=== PATIENT | male | born 1955 | race Caucasian/White ===

== ENCOUNTER 2018-10-17 10:30 | Outpatient (RCR) | payer SELFPAY ==
--- NOTE | 2018-10-03 16:29 | HP.PTEVAL_ITS ---
Patient's Visit Information STEPHANIE JONES is a 62 year old M referred to Physical Therapy by Isaiah Galdamez MD with a diagnosis of RIGHT HIP PAIN. Date of Evaluation: 10/03/18 Physical Therapist: Kade Miranda PT, Cert MDT, OCS - Visit Plan Frequency: 1-2x /Week Duration: 4 Weeks Plan: postural ex's,lumbar ROM,DLS,HIP STRENGTHENING,modalties as needed - Subjective Findings: This 62 y/o male presents to physical therapy with right hip pain. Patient has had right buttuck many years.Patient seen chiroprctor has been using lift right side. Patient seen DR huff PT. Patient pain located right SI/LS. Aleve overcounter. Aggravated factors lifting,bending,walking,standing 1hour.Alleviating factors sitting is okay .Denies parathesia/tingling. Bowel/bladder. Coughing/sneezing. -. No trauma. Patient symptoms affect QOL Sunitha function /job demands.Patient has h/o lumbar p[ain. SOCIAL: . VOCATION: paint shop - Pain Right Buttocks Pain Intensity (Out of 10): 7 Pain Intensity Range: 10 - Objective POSTURE: mild foward posture,right pelivis higher. PALAPTION: GAIT: reciprocal pattern. NEURO: intact. AROM: flexion 110 degrees,ER 60,IR 60. MMT: quads/hams 4/5,hip flexion 4-/5,hip abd 3+/5 right ,left 4-/5. LUMBAR ROM: flexion min loss,extension min loss,side glides min loss,. FLEXABLITY: hams min loss,piriformis min loss - Special Tests L/S Slump test left side: Negative L/S Slump test right side: Negative L/S Left Straight Leg Raise: Negative L/S Right Straight Leg Raise: Negative Lumbar Standing: Flexion - Mechanical Response: No effect Lumbar Standing: Flexion - Symptoms During Testing: No effect Lumbar Standing: Flexion - Symptoms After Testing: No effect Lumbar Standing: Extension - Mechanical Response: No effect Lumbar Standing: Extension - Symptoms During Testing: No effect Lumbar Standing: Extension - Symptoms After Testing: No effect Lumbar Standing: Right Side Glides - Mechanical Response: No effect Lumbar Standing: Right Side [place] - Symptoms During Testing: No effect Lumbar Standing: Right Side [place] - Symptoms After Testing: No effect Lumbar Standing: Left Side [place] - Mechanical Response: No effect Lumbar Standing: Left Side [place] - Symptoms During Testing: No effect Lumbar Standing: Left Side [place] - Symptoms After Testing: No effect Lumbar Lying: Flexion - Mechanical Response: No effect Lumbar Lying: Flexion - Symptoms During Testing: No effect Lumbar Lying: Flexion - Symptoms After Testing: No effect Lumbar Lying: Extension - Mechanical Response: No effect Lumbar Lying: Extension - Symptoms During Testing: No effect Lumbar Lying: Extension - Symptoms After Testing: No effect R Hip Scour: Negative R Hip Quadrant - Intraarticular Pathology: Negative R Hip Trendelenberg - Glut Medius: Negative R Hip Harshad - IT Band: Negative - Goals Goal 1:: Independant with HEP Goal Time Frame: 2-4 Weeks Goal 2:: Patient to improve posture for ADL'S Goal Time Frame: 2-4 Weeks Goal 3:: Decrease pain in right L-S /sis region by 50% or greater to improve function Goal Time Frame: 2-4 Weeks Goal 4:: Patient to increase strength right glut medius by 4/5 to improve function. Goal Time Frame: 2-4 Weeks Goal 5:: Patient to impove LFES score by 5-10 points or greater to improve function. Goal Time Frame: 2-4 Weeks - Rehabilitation Potential Physical Therapy Diagnosis: This patient has right posterior glut pain possible derranagement with weakness of glut medius, [facility] Rehabilitation Potential: Good - Anticipated Interventions Patient/Client Instruction: Educate patient on: Condition, Plan of Care For the Purpose of:: To decrease pain, To increase ROM, To improve muscle perfo rmance and motor function, To improve ability to perform ADL's, To increase tolerance to activity/condition/position, To improve ability of physical actions for home/community/work/leisure, To improve health of tissue, To decrease soft tissue restriction, To increase flexibility/ROM, To reduce risk of recurrence, To improve ability to perform tasks related to life management Therapeutic Exercise to Include: Strength training, Body mechanics, Postural training, Flexibilty training, Dynamic Lumbar Stabilization, Nan Exercises For the Purpose of:: To decrease pain, To increase ROM, To improve muscle performance and motor function, To improve ability to perform ADL's, To increase tolerance to activity/condition/position, To improve ability of physical actions for home/community/work/leisure, To improve health of tissue, To decrease soft tissue restriction, To increase flexibility/ROM, To improve ability to perform tasks related to life management TENS: Yes IF ES: Yes Cryotherapy (ice pack, ice massage): Yes Thermo therapy (hot pack): Yes Ultrasound (thermal/non thermal): Yes For the Purpose of:: To decrease pain, To increase ROM, To improve nutrient delivery to tissue, To increase oxygenation perfusion, To improve health of tissue, To decrease soft tissue restriction Thank you for the opportunity to evaluate your patient. For Medicare and Medicare HMO plans, please review the plan of care and approve it. It will need to be FAXED BACK to us at [phone] for Medicare purposes. For Medicare only, by signing this I certify the plan of care. Please let me know if there are questions or concerns regarding this plan of care. Physician Signature: Date:
--- NOTE | 2019-02-07 11:29 | HP.PTDCSUM ---
HP - PT D/C Summary It has been my pleasure to treat STEPHANIE JONES under orders from Isaiah Galdamez MD, for the diagnosis of RIGHT HIP PAIN for a total of 2 visit(s). Discharge Date: Please see the following information for a summary of their discharge status. - Subjective Subjective: Doing okay ,pain is about pain - Pain Right Buttocks Pain Intensity (Out of 10): 2 - Overall Improvement % Improvement: 40 - Objective Objective/Function: DID WELL WITH EX'S WITH PROGRESSION OF DLS AND POSTURE..PAIN UNCHANGED - Goals Goal 1:: Independant with HEP Goal 2:: Patient to improve posture for ADL'S Goal 3:: Decrease pain in right L-S /sis region by 50% or greater to improve function Goal 4:: Patient to increase strength right glut medius by 4/5 to improve function. Goal 5:: Patient to impove LFES score by 5-10 points or greater to improve function. - Plan Plan: D/C TO HEP - D/C Information If there are questions or concerns regarding this patient's physical therapy, please feel free to call me at [phone]. Thank you for the referral of this patient. Sincerely, Kade Miranda, PT, Cert MDT, OCS
== END 2018-10-17 19:00 | disposition home or self-care (01) ==
LOC: PT 10:30
PROVIDERS: Family Provider Family Medicine; PCP Family Medicine; Referring Provider Family Medicine; Visit Provider Family Medicine
DX: M25.551 Pain in right hip (principal)
CPT/HCPCS: 97110; 97162

== ENCOUNTER → 2020-09-30 | Outpatient (CLI) | payer MEDICARE, OTHER, SELFPAY ==
--- NOTE | 2020-09-30 | LES_PTH ---
PATIENT: ALEJO JONES LOC: [facility] U#:[id number] AGE/SX: 64/M ROOM: RE09/30/[address]: Dr. Isaiah Galdamez MD : 1955 BED: DIS: 09/30/2020 SPEC #: [id number] RECD: 09/30/20 17:54 STATUS: MAINOR GASPARMicheal #: [id number] RADHA: 09/30/20 00:[address]: Isaiah Galdamez DEPT: SURGICAL PATHOLOGY RECD BY: Jefe Townsend Tissues: Oral cavity, NOS Procedures: Surgery Specimen Level IV HEADER OPERATION: Excision PRE-OP DIAGNOSIS: Oral lesion, possible SCC TISSUE SUBMITTED: Oral mucosa MICROSCOPIC DIAGNOSIS Oral lesion, biopsy: Consistent with fibroma. AM:diandra 10/02/2020 COMMENT Case has been reviewed in consultation with Dr. Van who concurs with the above diagnosis. IDC:SJ MICROSCOPIC DESCRIPTION Slides are reviewed. GROSS DESCRIPTION Received in fixative is one container labeled with the patient's name and designated mucosa right lip. The specimen consists of one irregular fragment of light luna soft tissue that measures 0.4 x 0.3 x 0.2 cm. The specimen is totally submitted in one cassette. The specimen is inked and submitted entirely in one cassette. / PRAKASH:diandra 10/01/20 TC:5 [facility]: [id number]
== END | disposition home or self-care (01) ==
LOC: LABSPEC 10-01 05:59
PROVIDERS: PCP Family Medicine; Referring Provider Family Medicine; Visit Provider Family Medicine
DX: K13.70 Unspecified lesions of oral mucosa (principal)
CPT/HCPCS: 88305

== ENCOUNTER → 2020-10-25 09:44 | Outpatient (CLI) | payer MEDICARE, SELFPAY ==
[2017-01-26 06:58] VITALS: BMI 29.1
[2020-10-25 12:25] LABS: Absolute Neutrophil Count 3.8 X10^3/uL (2.0-7.7); Basophil# 0.03 X10^3/uL; Basophil% 0.5 % (0-1); Eosinophil# 0.37 X10^3/uL; Eosinophils% 5.6 % (0-5); Hemoglobin 13.8 g/dL (13.0-16.5); Lymphocyte % 31.7 % (19-41); Mean Corp Hgb Conc 32.9 g/dL (32-36); Mean Corpuscular Hgb 29.4 pg (27.0-32.0); Mean Corpuscular Volume 89.6 fL (80-94); Mean Platelet Vol. 9.4 fl (6.2-12.0); Monocyte# 0.35 X10^3/uL; Monocyte% 5.3 % (0-10); NRBC Flagged by Analyzer 0 % (0-5); Neutrophil # 3.75 X10^3/uL (2.7-7.7); Neutrophil % 56.6 % (47-70); Platelet Count 257 K/mm3 (150-450); RBC Distribution Width CV 12.3 % (11.6-14.6); RBC Distribution Width SD 40.3 fl (35.1-43.9); Red Blood Count 4.69 M/mm3 (4.6-6.2); White Blood Count 6.6 K/mm3 (4.4-11.0)
[2020-10-25 12:50] LABS: Anion Gap 6 (5-15); BUN 16 mg/dL (7-18); BUN/Creat Ratio 17.3 RATIO (10-20); Calcium,Total 8.7 mg/dL (8.5-10.1); Chloride 107 mmol/L (98-107); Creatinine, Serum 0.92 mg/dL (0.70-1.30); EST Glomerular Filtration Rate 87 mL/min (>60); Est Glom Filt Rate - Afr Amer 105 mL/min (>60); Glucose 90 mg/dL (74-106); Potassium 4.2 mmol/L (3.5-5.1); Sodium Level 138 mmol/L (136-145)
[2020-10-25 17:57] LABS: Cholesterol 193 mg/dL (200); High Density Lipoprotein 59 mg/dL; PSA,Total - Annual Screen 1.07 ng/mL (0.00-4.00); Triglycerides 56 mg/dL; Very Low Density Lipoprotein 11 mg/dL (5-40)
== END ==
PROVIDERS: Nurse Practitioner Family; PCP Family Medicine; Visit Provider Family Medicine
DX: Z00.00 Encounter for general adult medical examination without abnormal findings (principal); G43.909 Migraine, unspecified, not intractable, without status migrainosus; Z12.5 Encounter for screening for malignant neoplasm of prostate
CPT/HCPCS: 36415; 80048; 80061; 84153; 85025; G0103

== ENCOUNTER → 2021-03-11 12:16 | Outpatient (CLI) | payer MEDICARE, OTHER, SELFPAY ==
--- NOTE | 2021-03-11 12:20 | RAD_ITS ---
STUDY: X-RAY CHEST REASON FOR EXAM: Male, 65 years old. COUGH TECHNIQUE: PA and lateral views of the chest. COMPARISON: Comparison is made with prior study dated 08/04/2011. FINDINGS: There are now is evidence of infiltrate in the posterior medial segment of the left lower lobe. Radiographic follow-up is recommended until clearing. There is no demonstrated pleural abnormality. Normal size heart. Normal mediastinum and diana. Normal visualized pulmonary arteries. There is atherosclerotic tortuosity of the aortic arch and descending thoracic aorta. There are diffuse degenerative changes of the visualized thoracic spine. Prior right rotator cuff surgery. There is no demonstrated abnormality of the visualized soft tissue structures of the upper abdomen. RAD/Chest PA and Lateral IMPRESSION: Infiltrate in the posterior medial segment of the left lower lobe as described. Radiographic follow-up until clearing is recommended. Electronically Signed: Nicanor Gray MD at 15:15 EST , Service support ,
[2021-03-11 15:08] LABS: Erythrocyte Sedimentation Rate 8 mm/hr (0-20)
[2021-03-11 15:10] LABS: Absolute Lymphocyte Count 2.04 X10^3/uL (0.83-4.51); Absolute Neutrophil Count 2.8 X10^3/uL (2.0-7.7); Basophil# 0.03 X10^3/uL; Basophil% 0.5 % (0-1); Eosinophil# 0.15 X10^3/uL; Eosinophils% 2.7 % (0-5); Hematocrit 44.9 % (40-54); Hemoglobin 14.9 g/dL (13.0-16.5); Lymphocyte # 2.04 X10^3/ul (0.83-4.51); Lymphocyte % 36.8 % (19-41); Mean Corp Hgb Conc 33.2 g/dL (32-36); Mean Corpuscular Hgb 29.4 pg (27.0-32.0); Mean Corpuscular Volume 88.6 fL (80-94); Mean Platelet Vol. 8.8 fl (6.2-12.0); NRBC Flagged by Analyzer 0 % (0-5); Neutrophil % 50.6 % (47-70); Platelet Count 302 K/mm3 (150-450); RBC Distribution Width CV 12.4 % (11.6-14.6); RBC Distribution Width SD 40.1 fl (35.1-43.9); Red Blood Count 5.07 M/mm3 (4.6-6.2); White Blood Count 5.5 K/mm3 (4.4-11.0)
[2021-03-11 16:02] LABS: AST(SGOT) 30 U/L (15-37); Alanine Aminotransfer ALT/SGPT 51 U/L (16-61); Alkaline Phosphatase 113 U/L (45-117); Anion Gap 5 (5-15); BUN 13 mg/dL (7-18); BUN/Creat Ratio 14.3 RATIO (10-20); CRP < 2.90 mg/L (0.0-3.0); Calcium,Total 9.1 mg/dL (8.5-10.1); Chloride 105 mmol/L (98-107); Creatinine, Serum 0.91 mg/dL (0.70-1.30); EST Glomerular Filtration Rate 89 mL/min (>60); Est Glom Filt Rate - Afr Amer 108 mL/min (>60); Glucose 89 mg/dL (74-106); Potassium 3.9 mmol/L (3.5-5.1); Rheumatoid Factor < 10.0 IU/mL (<15); Sodium Level 137 mmol/L (136-145)
[2021-03-14 09:31] LABS: ANTINUCLEAR ANTIBODIES DIRECT Negative (Negative)
[2021-03-15 03:08] LABS: QNTFERON TB Mitogen Value > 10.00 IU/mL (.); QNTFERON TB Nil Value 0.28 IU/mL (.); QNTFERON TB1+ Ag Value 0.28 IU/mL (.); QNTFERON TB2+ Ag Value 0.28 IU/mL (.)
[2021-03-15 08:05] LABS: QNTIFERON TB Positive Criteria Negative (Negative)
== END ==
PROVIDERS: PCP Family Medicine; Referring Provider Family Medicine; Visit Provider Family Medicine
DX: R05.3 Chronic cough (principal)
CPT/HCPCS: 36415; 71046; 80053; 85025; 85652; 86038; 86140; 86431; 86480

== ENCOUNTER → 2021-03-22 08:39 | Outpatient (CLI) | payer MEDICARE, BC, SELFPAY ==
--- NOTE | 2021-03-22 08:44 | CT_ITS ---
STUDY: CT CHEST WITHOUT CONTRAST REASON FOR EXAM: Male, 65 years old. Cough, follow-up exam from chest x-ray. RADIATION DOSAGE (If Supplied By Facility): CTDIvol = ( 14.78 ) mGy, DLP = ( 532.01 ) mGycm TECHNIQUE: Transaxial imaging was performed without the administration of intravenous contrast material. Individualized dose optimization techniques were used for this CT. COMPARISON: Chest x-ray of 03/11/2021. FINDINGS: Mild left perihilar and lower lobe bronchiectatic changes. No focal infiltrate is seen. No evidence of pulmonary nodules. Mild stranding/scarring in the right middle lobe. The trachea and mainstem bronchi are otherwise unremarkable. There is no demonstrated pleural abnormality. Normal heart and pericardium. There are mild coronary calcifications. Few mediastinal nodes probably reactive. No evidence of adenopathy. Normal hilar regions. Normal unenhanced pulmonary arteries. Tortuosity of the descending thoracic aorta. There are degenerative changes of the thoracic spine. Low-density lesion probably presenting cysts difficult to characterize on this exam. Partially visualized left renal cysts. CT/Chest without Contrast IMPRESSION: 1. Mild bronchiectatic and chronic changes. 2. No mass, adenopathy or focal acute infiltrate. 3. Probably small liver cysts. Electronically Signed: Naga Kohli, at 12:54 EST Tel , Service support ,
== END ==
PROVIDERS: PCP Family Medicine; Referring Provider Family Medicine; Visit Provider Family Medicine
DX: R05.3 Chronic cough (principal)
CPT/HCPCS: 71250

== ENCOUNTER → 2021-03-31 06:50 | Outpatient (CLI) | payer MEDICARE, BC, SELFPAY ==
--- NOTE | 2021-03-31 16:02 | PFTCOMP ---
COMPLETE PULMONARY FUNCTION TEST INTERPRETATION Brief HPI: Patient is a 65 year old male, currently under the care of Dr. Galdamez, who presents to [facility] for complete pulmonary function tests secondary to diagnosis of bronchiectasis. Respiratory therapist reports good effort and reproducible results. Interpretation: Forced expiration spirometry shows no large airways obstructive ventilatory defect with an FEV1 of 71% predicted. There is no significant bronchodilator response by strict ATS criteria. Spirograms are of poor quality and plateau normally. The respiratory flow volume loop shows a normal pattern. Lung volumes by body plethysmography show a normal total lung capacity at 6.18 L, 94% predicted. FRC and RV are elevated out of proportion, but this does not reach clinical significance by latest ATS criteria. Diffusion capacity by carbon monoxide is normal at 95% predicted. The airway resistance is normal. No previous pulmonary function tests were available for review. Impression: These pulmonary function tests are grossly within normal limits.
== END ==
PROVIDERS: PCP Family Medicine; Referring Provider Family Medicine; Visit Provider Family Medicine
DX: J47.9 Bronchiectasis, uncomplicated (principal)
CPT/HCPCS: 94060; 94726; 94729

== ENCOUNTER → 2021-09-05 | Outpatient (CLI) | payer MEDICARE, BC, SELFPAY ==
--- NOTE | 2021-09-05 10:03 | RAD_ITS ---
STUDY: X-RAY - RIGHT KNEE REASON FOR EXAM: Male, 65 years old. Knee injury. Pain. TECHNIQUE: 4 view(s) of the knee. COMPARISON: None. FINDINGS: Osteopenia. Changes of ACL reconstruction. Moderate medial compartmental arthrosis with osteophytes. Normal lateral compartment. Slight lateral tilt and subluxation of the patella with moderate arthrosis of the patellofemoral compartment. The soft tissue structures are unremarkable. RAD/Knee 4 or More Views IMPRESSION: Osteopenia with changes of ACL reconstruction. Medial and patellofemoral compartmental arthrosis. No acute abnormality, chondrocalcinosis, erosive changes or periostitis. Electronically Signed: Fei Gu MD at 11:15 EDT ,
== END | disposition home or self-care (01) ==
LOC: MTRAD 10:01
PROVIDERS: PCP Family Medicine; Referring Provider Family Medicine; Visit Provider Family Medicine
DX: S89.91XA Unspecified injury of right lower leg, initial encounter (principal)
CPT/HCPCS: 73564

== ENCOUNTER 2021-11-03 10:03 | Day surgery (SDC) | payer MEDICARE, BC, SELFPAY ==
[2021-11-03 10:20] VITALS: BP 123/77; PULSE 62; RESP 16; TEMP 36.4; O2SAT 100; BMI 28.7
--- NOTE | 2021-11-03 10:21 | PCM.HP.BLA ---
History and Physical Date of Admission: 11/03/21 Details: ALEJO JONES, is a 65 M who presents to the office today for acid reflux. He had a cough for more than 6 months, didn't respond to meds for allergies, inhalers. Non-productive cough on exhale. Cough has resolved. He did some research on GERD, changed his diet. He has hoarse voice, occas regurgitation. He had been taking omeprazole prn eg if he ate spaghetti, then started it regularly. Tried esomeprazole too, about the same response. Says he has always kept antacids in his car. Can have trouble swallowing, eg dry chicken breast. No abd pain, nausea, diarrhea. No bowel complaints. No hematochezia or melena. Hx of colon polyps on his first colonoscopy, then the f/u was negative. Due for screening colonoscopy now. 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 ROS Const Constitutional: No fatigue ENT ENT: Positive for difficulty swallowing and hoarseness Gastro GI: Positive for heartburn, difficulty swallowing and excessive flatus; No abdominal pain, belching, bloating, change in bowel habits, change in stool character, coffee ground emesis, constipation, cramping, diarrhea, feeling full early, incontinent of stools, Vomiting blood/hematemesis, Blood in stool, loose stools, Black,tarry stools, nausea/dyspepsia, pain with swallowing, vomiting or other Musc Musculoskeletal: Positive for Arthritis and restless legs; No joint pain Skin Skin: No yellowing of the eye or itchy eyes Neuro Neurology: Positive for restless legs Psych Psychiatric: No anxiety and No depression Endo Endocrine: No fatigue Aller/Imm Allergy/Immunologic: No itchy eyes Chele/Lymp Hematologic/Lymphatic: No easy bleeding or easy bruising Exam Const General: cooperative, healthy appearing, well developed and well groomed Resp Effort & Inspection: normal respiratory effort GI Inspection: normal to inspection Palpation: soft, no hepatosplenomegaly and nontender Assessment and Plan Assessment and Plan (1) GERD (gastroesophageal reflux disease): ?Status:?Acute (2) Hx of colonic polyps: ?Status:?Acute ?Plan - Lolita Linares NP, LABORER GENERAL-C: 65 yo male with GERD. Rx pantoprazole 40 mg QAM. Schedule EGD and colonoscopy. Eval for esophagitis, Brooks's, esophageal stricture, gastritis. Will get screening colonoscopy considering hx of polyps. f/u 2 wks after endoscopy Plan Details Other Medications: ?New: ? pantoprazole 40 mg PO DAILY 90 tabs 0RF ?Discontinued: ? omeprazole ?? Discontinued Reason:? Order Changed 20 mg PO DAILY ? ? ? fluticasone propionate 50 mcg/actuation ?? administer into each nostril ?? Discontinued Reason:? Pt no longer taking 2 sprays? intranasal DAILY ? ? ? fexofenadine ?? Discontinued Reason:? Pt no longer taking 180 mg? PO DAILY ? ? ? chlorpheniramine maleate ?? do not exceed 2 doses per 24 hrs ?? Discontinued Reason:? Pt no longer taking 4 mg? PO Q8H PRN ? ? ? benzonatate ?? Discontinued Reason:? Pt no longer taking 200 mg? PO BID PRN ? ? ? tlsdywvlrt-gnldzryt-uraxiihlkw 160-9-4.8 mcg/actuation (Breztri Aerosphere) ?? Discontinued Reason:? Pt no longer taking 2 inhalations? inhalation BID ? ? I have re-examined the patient. There are no clinical changes since date of exam.
[2021-11-03] MEDS: Lactated Ringers 1,000 ML 30 ML IV (10:35)
--- NOTE | 2021-11-03 11:15 | EGD_PTH ---
PATIENT: ALEJO JONES LOC: EN U#:[id number] AGE/SX: 65/M ROOM: RE11/03/[address]: Dr. Ronny Carranza DO : 1955 BED: DIS: 11/03/2021 SPEC #: [id number] RECD: 11/03/21 13:55 STATUS: MAINOR NERI #: [id number] RADHA: 11/03/21 11:[address]: Ronny Carranza DEPT: SURGICAL PATHOLOGY RECD BY: Lynnette Boucher ENTERED: 11/04/21 08:05 SP TYPE: EGD BIOPSY REJI DR: Dr. Isaiah Galdamez MD Tissues: Esophagus, NOS Procedures: Special Stain Group II Surgery Specimen Level IV Alcian Blue/PAS (control) HEADER OPERATION: Colonoscopy, EGD with biopsy (MAC) PRE-OP DIAGNOSIS: GERD, history of colonic polyps TISSUE SUBMITTED: Distal esophagus MICROSCOPIC DIAGNOSIS Distal esophagus, biopsy: Fragments of gastroesophageal mucosa with chronic inflammation. Intestinal metaplasia (goblet cell metaplasia) is not identified. See comment. PRAKASH:diandra 11/05/2021 COMMENT Alcian blue/PAS stain with matched control is used in the evaluation of the specimen. MICROSCOPIC DESCRIPTION Slides are reviewed. GROSS DESCRIPTION Received in fixative is one container labeled with the patient's name and designated distal esophagus. The specimen consists of multiple irregular fragments of light luna soft tissue that in aggregate measure 1 x 0.3 x 0.1 cm. The specimen is totally submitted in one cassette. / PRAKASH:diandra 11/04/2021 TC:3 CPT: 28462, 55105
[2021-11-03 11:50] VITALS: BP 107/61; BP 123/77; PULSE 62; RESP 16; TEMP 36.7; O2SAT 98
[2021-11-03 11:55] VITALS: BP 100/72; BP 123/77; PULSE 62; RESP 16; O2SAT 99
--- NOTE | 2021-11-03 11:59 | OP.EGD_ITS ---
Patient Name: Ravin Michelle Procedure Date: 11/03/2021 11:18 AM Date of : 1955 Age: 65 Procedure: Upper GI endoscopy Indications: Heartburn, Suspected esophageal reflux Providers: Ronny Carranza DO Referring MD: Ronny Carranza DO Medicines: Monitored Anesthesia Care Patient Profile: This is a 65 year old male. Refer to note in patient chart for documentation of history and physical. Patient has symptoms of chronic cough and chronic heartburn. Complications: No immediate complications. Procedure: Pre-Anesthesia Assessment: - Prior to the procedure, a History and Physical was performed, and patient medications and allergies were reviewed. The risks and benefits of the procedure and the sedation options and risks were discussed with the patient. All questions were answered and informed consent was obtained. Patient identification and proposed procedure were verified by the physician in the pre-procedure area. Mental Status Examination: alert and oriented. Airway Examination: normal oropharyngeal airway and neck mobility. Respiratory Examination: clear to auscultation. CV Examination: normal. Prophylactic Antibiotics: The patient does not require prophylactic antibiotics. Prior Anticoagulants: The patient has taken no previous anticoagulant or antiplatelet agents. After reviewing the risks and benefits, the patient was deemed in satisfactory condition to undergo the procedure. The anesthesia plan was to use moderate sedation / analgesia (conscious sedation). Immediately prior to administration of medications, the patient was re-assessed for adequacy to receive sedatives. The heart rate, respiratory rate, oxygen saturations, blood pressure, adequacy of pulmonary ventilation, and response to care were monitored throughout the procedure. The physical status of the patient was re-assessed after the procedure. After obtaining informed consent, the endoscope was passed under direct vision. Throughout the procedure, the patient's blood pressure, pulse, and oxygen saturations were monitored continuously. The Colonoscope was introduced through the mouth, and advanced to the second part of duodenum. The upper GI endoscopy was accomplished without difficulty. The patient tolerated the procedure well. Scope In: 11:27:06 AM Scope Out: 11:30:55 AM Total Procedure Duration Time 0 hours 3 minutes 49 seconds Findings: LA Grade C (one or more mucosal breaks continuous between tops of 2 or more mucosal folds, less than 75% circumference) esophagitis with no bleeding was found 34 to 38 cm from the incisors. Biopsies were taken with a cold forceps for histology. Verification of patient identification for the specimen was done. Estimated blood loss was minimal. A small hiatal hernia was present. The second portion of the duodenum was normal. Impression: - LA Grade C reflux esophagitis. Biopsied. - Small hiatal hernia. - Normal second portion of the duodenum. Recommendation: - Discharge patient to home. - Resume previous diet. - Continue present medications. - Await pathology results. Procedure Code(s): --- Professional --- 36923, Esophagogastroduodenoscopy, flexible, transoral; with biopsy, single or multiple CPT copyright 2017 [employer]. All rights reserved. The codes documented in this report are preliminary and upon pile driver engineer review may be revised to meet current compliance requirements. Ronny Carranza DO 11/03/2021 11:58:34 AM This report has been signed electronically. Number of Addenda: 1 Note Initiated On: 11/03/2021 11:18 AM Addendum Number: 1 Addendum Date: 01/28/2022 6:23:32 AM MAC was used as sedation for this procedure. Ronny Carranza DO 01/28/2022 6:23:36 AM This report has been signed electronically.
[2021-11-03 12:00] VITALS: BP 105/75; BP 123/77; PULSE 59; RESP 16; O2SAT 94
--- NOTE | 2021-11-03 12:00 | OP.CCLET_ITS ---
01/28/2022 Isaiah Galdamez [address] [place] [address] Re : Upper GI endoscopy procedure for Ravin Michelle Dear Dr. Galdamez This procedure was performed on Wednesday, November 03, 2021. My impressions and recommendations are as follows: Impressions : - LA Grade C reflux esophagitis. Biopsied. - Small hiatal hernia. - Normal second portion of the duodenum. Recommendations : - Discharge patient to home. - Resume previous diet. - Continue present medications. - Await pathology results. My findings are described in the full procedure note, which is enclosed. If I can be of further assistance, please feel free to contact me at . Sincerely, Ronny Carranza, 11/03/2021 11:58:34 AM This report has been signed electronically.
--- NOTE | 2021-11-03 12:02 | OP.COLON_ITS ---
Patient Name: Ravin Michelle Procedure Date: 11/03/2021 11:31 AM Date of : 1955 Age: 65 Procedure: Colonoscopy Indications: Screening for colorectal malignant neoplasm Providers: Ronny Carranza DO Referring MD: Ronny Carranza DO Medicines: Monitored Anesthesia Care Patient Profile: This is a 65 year old male. Refer to note in patient chart for documentation of history and physical. Patient has symptoms of chronic cough and chronic heartburn. Last Colonoscopy: 5 years ago. Complications: No immediate complications. Procedure: Pre-Anesthesia Assessment: - Prior to the procedure, a History and Physical was performed, and patient medications and allergies were reviewed. The risks and benefits of the procedure and the sedation options and risks were discussed with the patient. All questions were answered and informed consent was obtained. Patient identification and proposed procedure were verified by the physician in the pre-procedure area. Mental Status Examination: alert and oriented. Airway Examination: normal oropharyngeal airway and neck mobility. Respiratory Examination: clear to auscultation. CV Examination: normal. Prophylactic Antibiotics: The patient does not require prophylactic antibiotics. Prior Anticoagulants: The patient has taken no previous anticoagulant or antiplatelet agents. After reviewing the risks and benefits, the patient was deemed in satisfactory condition to undergo the procedure. The anesthesia plan was to use moderate sedation / analgesia (conscious sedation). Immediately prior to administration of medications, the patient was re-assessed for adequacy to receive sedatives. The heart rate, respiratory rate, oxygen saturations, blood pressure, adequacy of pulmonary ventilation, and response to care were monitored throughout the procedure. The physical status of the patient was re-assessed after the procedure. After I obtained informed consent, the scope was passed under direct vision. Throughout the procedure, the patient's blood pressure, pulse, and oxygen saturations were monitored continuously. The Colonoscope was introduced through the anus and advanced to the terminal ileum. The colonoscopy was performed without difficulty. The patient tolerated the procedure well. The quality of the bowel preparation was good. Scope In: 11:33:05 AM Scope Withdrawal Time 0 hours 8 minutes 25 seconds Scope Out: 11:44:00 AM Total Procedure Duration Time 0 hours 10 minutes 55 seconds Findings: The perianal and digital rectal examinations were normal. A few small-mouthed diverticula were found in the sigmoid colon. The exam was otherwise without abnormality on direct and retroflexion views. Impression: - Diverticulosis in the sigmoid colon. - The examination was otherwise normal on direct and retroflexion views. - No specimens collected. Recommendation: - Discharge patient to home. - Resume previous diet. - Continue present medications. - Await pathology results. - Repeat colonoscopy in 5 years for surveillance. Procedure Code(s): --- Professional --- 67090, Colonoscopy, flexible; diagnostic, including collection of specimen(s) by brushing or washing, when performed (separate procedure) CPT copyright 2017 [employer]. All rights reserved. The codes documented in this report are preliminary and upon project portfolio analyst review may be revised to meet current compliance requirements. Ronny Carranza DO 11/03/2021 12:01:40 PM This report has been signed electronically. Number of Addenda: 1 Note Initiated On: 11/03/2021 11:31 AM Addendum Number: 1 Addendum Date: 01/28/2022 6:23:43 AM MAC was used as sedation for this procedure. Ronny Carranza DO 01/28/2022 6:23:47 AM This report has been signed electronically.
--- NOTE | 2021-11-03 12:02 | OP.CCLET_ITS ---
01/28/2022 Isaiah Galdamez [address] [place] [address] Re : Colonoscopy procedure for Ravin Michelle Dear Dr. Galdamez This procedure was performed on Wednesday, November 03, 2021. My impressions and recommendations are as follows: Impressions : - Diverticulosis in the sigmoid colon. - The examination was otherwise normal on direct and retroflexion views. - No specimens collected. Recommendations : - Discharge patient to home. - Resume previous diet. - Continue present medications. - Await pathology results. - Repeat colonoscopy in 5 years for surveillance. My findings are described in the full procedure note, which is enclosed. If I can be of further assistance, please feel free to contact me at . Sincerely, Ronny Friend, 11/03/2021 12:01:40 PM This report has been signed electronically.
[2021-11-03 12:05] VITALS: BP 123/77; PULSE 61; RESP 16; TEMP 36.3; O2SAT 97
[2021-11-03 12:10] VITALS: BP 123/77
== END 2021-11-03 12:30 | disposition home or self-care (01) ==
LOC: EN 10:06 → AC 10:07
PROVIDERS: PCP Family Medicine; Referring Provider Family Medicine; Visit Provider Internal Medicine Gastroenterology
PROC: 0DJD8ZZ Inspection of Lower Intestinal Tract, Via Natural or Artificial Opening Endoscopic (ICD-10-PCS; CPT 45378; principal; 2021-11-03 11:10)
DX: Z12.11 Encounter for screening for malignant neoplasm of colon (principal); K57.30 Diverticulosis of large intestine without perforation or abscess without bleeding; K21.00 Gastro-esophageal reflux disease with esophagitis, without bleeding; R13.10 Dysphagia, unspecified; K44.9 Diaphragmatic hernia without obstruction or gangrene; Z86.010 Personal history of colon polyps
CPT/HCPCS: G0121; 43239; 88305; 88313; J7120; J2405

== ENCOUNTER 2022-03-13 08:00 | Outpatient (RCR) | payer MEDICARE, BC, SELFPAY ==
--- NOTE | 2022-03-13 10:25 | HP.PTEVAL_ITS ---
Patient's Visit Information ALEJO JONES is a 66 year old M referred to Physical Therapy by Dr. Sudhakar Salinas DO with a diagnosis of Right Knee Pain. Date of Evaluation: 03/13/22 Physical Therapist: Amie Palacios DPT - Visit Plan Frequency: 2x /Week Duration: 4 Weeks Plan: Focus on LE and Core strength/stabilization- Posterior Chain. HEP Given IE: Bridge, Clams, Prone Hip Extn - Subjective Patient reports about 22 years ago he had right ACL and meniscus repair- its been bothering him since August- stepped through a board on his deck and jammed it up. Went to the MD and no fractures just stoved it and flared it up. Got an injection in August and then again a few weeks ago. Feels the cortisone injection gives him more mobility and takes the edge off. He reports the knee is still stiff. He can stretch it but its still just tight and swollen after a long day. Pain is located around the whole joint- more medially. X-ray shows OA and medial compartment narrowing. Worst: 5-6/10 Agg: weight bearing. Eases: prop it up and ice it. Best: 0/10. No radiating pain. No N/T the toes. Wearing a knee sleeve when he is working and wears the brace when he is outside working. Does have inserts in all of his shoes. 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 Has had PT for back pain- 2019-he has intermittent issues with his back. Still does his exercises- has a hot tub. Does not do any weights or cardio on a weekly basis. Sleep: not disturbed PMHx/Meds: No changes since Dr. Garcia 03/06/22 - Objective Posture: FH, RS- can correct with cues but does not maintain. Gait: no deviation noted. Stairs: asc/desc 8 recip- fair control with descent- no HR. HR/TR:able. SLS: 10 sec with increased sway and muscular imbalance. ROM: 0-125 degrees with discomfort at end range flexion. Strength: Core: fair, Hip: 4/5 throughout, Knee: 4+/5, Ankle: 5/5. Flex: HS: moderate, Gastroc: moderate. Palpation: tender along medial joint line - Special Tests R Knee Valgus - MCL: Positive R Knee Varus - LCL: Positive - Balance/Special Test Scores Lower Extremity Functional Score: 68 - Goals Goal 1:: Patient will be I with HEP and progression Goal Time Frame: 4-6 Weeks Goal 2:: Patient will maintain proper posture t/o tx session to demo increased core s/s Goal Time Frame: 4-6 Weeks Goal 3:: Patient will SLS for 30 sec without LOB Goal Time Frame: 4-6 Weeks Goal 4:: Patient will report 80% improvement Goal Time Frame: 4-6 Weeks - Rehabilitation Potential Physical Therapy Diagnosis: Patient presents with hypomobility- he has decreased LE and core strength/stabilization, flex, proprioception and muscular endurance leading to increased pain with ADL's. Rehabilitation Potential: Fair - Anticipated Interventions Patient/Client Instruction: Educate patient on: Benefits of Fitness Program Therapeutic Exercise to Include: Strength training, Endurance training, Balance training, Coordination, Agility training, Body mechanics, Postural training, Flexibilty training, Gait and locomotor training, Neuromotor development, Dynamic Lumbar Stabilization, Scapular Strength/Stabilization For the Purpose of:: To improve muscle performance and motor function TENS: Yes Cryotherapy (ice pack, ice massage): Yes Thermo therapy (hot pack): Yes Thank you for the opportunity to evaluate your patient. For Medicare and Medicare HMO plans, please review the plan of care and approve it. It will need to be FAXED BACK to us at [phone] for Medicare purposes. For Medicare only, by signing this I certify the plan of care. Please let me know if there are questions or concerns regarding this plan of care. Physician Signature: Date:
== END 2022-03-13 19:00 | disposition home or self-care (01) ==
LOC: PT 08:00
PROVIDERS: PCP Family Medicine; Referring Provider Orthopaedic Surgery; Visit Provider Orthopaedic Surgery
DX: M17.11 Unilateral primary osteoarthritis, right knee (principal)
CPT/HCPCS: 97110; 97162

== ENCOUNTER → 2022-04-21 | Outpatient (CLI) | payer MEDICARE, BC, SELFPAY | END | disposition home or self-care (01) | LOC: LABSPEC 13:58 | PROVIDERS: PCP Internal Medicine; Referring Provider Physician Assistant; Visit Provider Physician Assistant | DX: R05.9 Cough, unspecified (principal) | CPT/HCPCS: 87635; U0003; U0005 ==

== ENCOUNTER → 2022-10-19 | Outpatient (CLI) | payer MEDICARE, BC, SELFPAY ==
[2022-10-19 12:33] LABS: Absolute Lymphocyte Count 1.93 X10^3/uL (0.83-4.51); Absolute Neutrophil Count 2.9 X10^3/uL (2.0-7.7); Basophil# 0.03 X10^3/uL; Basophil% 0.5 % (0-1); Eosinophil# 0.35 X10^3/uL; Eosinophils% 6.2 % (0-5); Hematocrit 43.8 % (40-54); Hemoglobin 14.3 g/dL (13.0-16.5); Lymphocyte # 1.93 X10^3/ul (0.83-4.51); Mean Corp Hgb Conc 32.6 g/dL (32-36); Mean Corpuscular Hgb 29.9 pg (27.0-32.0); Mean Corpuscular Volume 91.4 fL (80-94); Mean Platelet Vol. 9.6 fl (6.2-12.0); Monocyte# 0.42 X10^3/uL; Monocyte% 7.4 % (0-10); NRBC Flagged by Analyzer 0 % (0-5); Neutrophil # 2.93 X10^3/uL (2.7-7.7); Neutrophil % 51.5 % (47-70); Platelet Count 241 K/mm3 (150-450); RBC Distribution Width CV 12.6 % (11.6-14.6); RBC Distribution Width SD 42.5 fl (35.1-43.9); Red Blood Count 4.79 M/mm3 (4.6-6.2); White Blood Count 5.7 K/mm3 (4.4-11.0)
[2022-10-19 12:50] LABS: ALB/GLOB Ratio 1.2 RATIO (0.9-2.4); AST(SGOT) 28 U/L (15-37); Alanine Aminotransfer ALT/SGPT 38 U/L (16-61); Albumin, Serum 3.8 g/dL (3.2-5.0); Alkaline Phosphatase 77 U/L (45-117); Anion Gap 6 (5-15); BUN 20 mg/dL (7-18); BUN/Creat Ratio 22.3 RATIO (10-20); Calcium,Total 8.7 mg/dL (8.5-10.1); Chloride 111 mmol/L (98-107); Cholesterol 206 mg/dL (200); EST Glomerular Filtration Rate 90 mL/min (>60); Est Glom Filt Rate - Afr Amer 108 mL/min (>60); Globulin 3.3 g/dL (2.2-4.2); Glucose 97 mg/dL (74-106); High Density Lipoprotein 57 mg/dL; Potassium 4.3 mmol/L (3.5-5.1); Protein, Total 7.1 g/dL (6.4-8.2); Sodium Level 141 mmol/L (136-145); Triglycerides 81 mg/dL; Very Low Density Lipoprotein 16 mg/dL (5-40)
== END | disposition home or self-care (01) ==
LOC: BIMLAB 09:08
PROVIDERS: PCP Internal Medicine; Visit Provider Internal Medicine
DX: Z00.00 Encounter for general adult medical examination without abnormal findings (principal); K21.9 Gastro-esophageal reflux disease without esophagitis; Z13.6 Encounter for screening for cardiovascular disorders; Z28.21 Immunization not carried out because of patient refusal
CPT/HCPCS: 36415; 80053; 80061; 85025

== ENCOUNTER → 2023-10-25 | Outpatient (CLI) | payer MEDICARE, BC, SELFPAY ==
[2023-10-25 12:17] LABS: Absolute Lymphocyte Count 1.85 X10^3/uL (0.83-4.51); Absolute Neutrophil Count 2.5 X10^3/uL (2.0-7.7); Basophil# 0.03 X10^3/uL; Basophil% 0.6 % (0-1); Eosinophil# 0.37 X10^3/uL; Eosinophils% 7.2 % (0-5); Hematocrit 41.8 % (40-54); Hemoglobin 13.5 g/dL (13.0-16.5); Lymphocyte # 1.85 X10^3/ul (0.83-4.51); Mean Corp Hgb Conc 32.3 g/dL (32-36); Mean Corpuscular Hgb 29.2 pg (27.0-32.0); Mean Corpuscular Volume 90.5 fL (80-94); Mean Platelet Vol. 9.5 fl (6.2-12.0); Monocyte# 0.38 X10^3/uL; Monocyte% 7.4 % (0-10); NRBC Flagged by Analyzer 0 % (0-5); Neutrophil % 48.6 % (47-70); Platelet Count 245 K/mm3 (150-450); RBC Distribution Width CV 12.7 % (11.6-14.6); RBC Distribution Width SD 42.2 fl (35.1-43.9); Red Blood Count 4.62 M/mm3 (4.6-6.2); White Blood Count 5.1 K/mm3 (4.4-11.0)
[2023-10-25 12:45] LABS: ALB/GLOB Ratio 1.1 RATIO (0.9-2.4); AST(SGOT) 16 U/L (15-37); Alanine Aminotransfer ALT/SGPT 37 U/L (16-61); Albumin, Serum 3.6 g/dL (3.2-5.0); Alkaline Phosphatase 77 U/L (45-117); Anion Gap 7 (5-15); BUN 22 mg/dL (7-18); BUN/Creat Ratio 25.5 RATIO (10-20); Calcium,Total 8.7 mg/dL (8.5-10.1); Chloride 111 mmol/L (98-107); Cholesterol 176 mg/dL (200); Creatinine, Serum 0.86 mg/dL (0.70-1.30); EST Glomerular Filtration Rate 94 mL/min (>60); Est Glom Filt Rate - Afr Amer 113 mL/min (>60); Globulin 3.2 g/dL (2.2-4.2); Glucose 99 mg/dL (74-106); High Density Lipoprotein 53 mg/dL; Potassium 4.4 mmol/L (3.5-5.1); Protein, Total 6.8 g/dL (6.4-8.2); Sodium Level 140 mmol/L (136-145); Triglycerides 69 mg/dL; Very Low Density Lipoprotein 14 mg/dL (5-40)
== END | disposition home or self-care (01) ==
LOC: BIMLAB 08:03
PROVIDERS: PCP Internal Medicine; Referring Provider Internal Medicine; Visit Provider Internal Medicine
DX: Z00.00 Encounter for general adult medical examination without abnormal findings (principal); K21.00 Gastro-esophageal reflux disease with esophagitis, without bleeding; Z13.6 Encounter for screening for cardiovascular disorders
CPT/HCPCS: 36415; 80053; 80061; 85025

== ENCOUNTER → 2025-01-01 | Outpatient (CLI) | payer MEDICARE, BC, SELFPAY ==
[2025-01-01 12:08] LABS: Hematocrit 42.3 % (40-54); Hemoglobin 14.3 g/dL (13.0-16.5); Immature Granulocytes Count 0.020 X10^3/uL (0.0-0.0); Mean Corp Hgb Conc 33.8 g/dL (32-36); Mean Corpuscular Volume 88.7 fL (80-94); Mean Platelet Vol. 9.5 fl (6.2-12.0); NRBC Flagged by Analyzer 0 % (0-5); Platelet Count 236 K/mm3 (150-450); RBC Distribution Width CV 12.6 % (11.6-14.6); RBC Distribution Width SD 41.1 fl (35.1-43.9); Red Blood Count 4.77 M/mm3 (4.6-6.2); White Blood Count 5.6 K/mm3 (4.4-11.0)
[2025-01-01 12:51] LABS: AST(SGOT) 32 U/L (<=37); Alanine Aminotransfer ALT/SGPT 35 U/L (<=46); Albumin, Serum 4.3 g/dL (3.4-4.8); Alkaline Phosphatase 74 U/L (40-129); Anion Gap 10 (5-15); BUN 21 mg/dL (4-19); BUN/Creat Ratio 25.8 RATIO (10-20); Calcium,Total 9.1 mg/dL (7.6-11.0); Carbon Dioxide 22.1 mmol/L (21.0-32.0); Chloride 105 mmol/L (98-108); Cholesterol 192 mg/dL (<=200); Globulin 2.6 g/dL (2.2-4.2); Glucose 99 mg/dL (70-99); Low Density Lipoprotein Calc. 117 mg/dL; Potassium 4.3 mmol/L (3.3-5.1); Triglycerides 55 mg/dL; Very Low Density Lipoprotein 11 mg/dL (5-40); cholesterol:hdl ratio screen 3.00
== END | disposition home or self-care (01) ==
LOC: MFPLAB 09:49
PROVIDERS: PCP Internal Medicine; Visit Provider Family Medicine
DX: L40.50 Arthropathic psoriasis, unspecified (principal); M13.0 Polyarthritis, unspecified; Z12.5 Encounter for screening for malignant neoplasm of prostate; Z13.220 Encounter for screening for lipoid disorders
CPT/HCPCS: 36415; 80053; 80061; 85025